=== PATIENT | male | born 1980 | race Caucasian/White ===

== ENCOUNTER 2023-10-26 10:24 | Emergency (ER) | payer BC, SELFPAY ==
[2023-10-26 10:27] VITALS: BP 142/89; PULSE 63; RESP 16; TEMP 37.1; O2SAT 100
[2023-10-26 10:34] VITALS: BP 142/89; PULSE 63; RESP 16; TEMP 37.1; O2SAT 100
--- NOTE | 2023-10-26 10:45 | ED.GENADUL_ITS ---
Discharge Plan Disposition Patient Disposition: Home Condition: Good Discharge Details Chief Complaint: Abd Prob Clinical Impression: Abdominal pain, Abdominal muscle strain Primary Care Provider: Unknown,Unknown ED Provider: Maxx Reddy Home Meds and New Rx's Prescriptions: No Action No Known Home Meds Discharge Instructions Instructions: Muscle Strain (ED), Abdominal Pain (ED) Additional Instructions: You were seen in the emergency department for abdominal pain. We performed labs and a CAT scan your abdomen that were unremarkable. I suspect you likely have a muscle strain of your abdomen. If your symptoms do not fully resolve you should follow-up with your primary care doctor. Take Tylenol and ibuprofen for any discomfort. No heavy lifting but strict bedrest will make this worse. Return to the emergency department for worsening abdominal pain, intractable nausea or vomiting, high fevers or chills, or any black or bloody stools. HPI General Mode of arrival: ambulatory . Date/Time Provider Initiated Documentation: 10/26/23 10:30 . Limitations to Documentation: no limitations . Information obtained by: patient . HPI Narrative: This is a 43-year-old male who presents with left lower quadrant abdominal pain. Lingering for about 3 weeks with no other symptoms. Worse with movement. Says he was lifting something yesterday and it got worse. Still only worse with movement. Not worse with pushing on it. He has no nausea or vomiting. Still eating and drinking normally. No diarrhea or constipation. No black or bloody stools. No urinary symptoms. No penile discharge. No testicular pain. He is not noticing any bulging or scrotal masses. Related Data Home Medications Medication Instructions Recorded Confirmed Unknown [No Known Home Meds] 10/26/23 10/26/23 Allergies Allergy/AdvReac Type Severity Reaction Status Date / Time No Known Allergies Allergy Unverified 10/26/23 10:30 General Stated Complaint: Abd Prob IMELDA: 3 Review of Systems Constitutional Constitutional: Denies chills, Denies fever(s) and Denies headache(s) Eyes Eyes: Denies change in vision ENT Ears, Nose, Mouth, and Throat: Denies headache(s) and Denies odynophagia Cardiovascular Cardiovascular: Denies chest pain and Denies dyspnea Respiratory Respiratory: Denies dyspnea Gastrointestinal Gastrointestinal: Reports abdominal pain, Denies diarrhea, Denies nausea, Denies odynophagia and Denies vomiting Genitourinary Genitourinary: Denies dysuria Musculoskeletal Musculoskeletal: Denies myalgias Integumentary/Breasts Skin/Breast: Denies changing lesions Neurologic Neurologic: Denies behavioral changes and Denies headache(s) Psychiatric Psychiatric: Denies behavioral changes Endocrine Endocrine: Denies heat intolerance Hematologic/Lymphatic Hematologic/Lymphatic: Denies lymphadenopathy Exam Const General: cooperative Nutritional Appearance: average body habitus Orientation: alert, awake and oriented x3 HENMT Head: normal to inspection Ears: external ears normal Mouth: moist mucous membranes Eyes Pupils: PERRL EOM: EOM intact bilaterally and No nystagmus Neck Neck: full ROM and no tracheal deviation Chest Chest: normal inspection of the chest Resp Auscultation: clear to auscultation bilaterally Cardio Rate: regular rate Rhythm: regular rhythm GI Inspection: normal to inspection Palpation: soft, no guarding, not rigid and nontender Back/Spine/Pelvis Back: No no CVA tenderness Thoracic/Lumbar Spine: thoracic and lumbar spine normal to inspection Skin General skin exam: no rashes or lesions noted Neuro General: patient alert, patient awake and patient oriented x3 Cranial Nerves: CN's II-XI intact bilaterally, PERRL and no nystagmus Cognition: normal cognition Motor: muscle tone normal throughout and strength 5/5 throughout Sensory Exam: no sensory deficits noted Extrem General: normal to inspection Course Vital Signs Vital signs: Vital Signs Temperature 37.1 C 10/26/23 10:27 Pulse 63 10/26/23 10:27 Respiratory Rate 16 10/26/23 10:27 Blood Pressure 142/89 H 10/26/23 10:27 Pulse Oximetry 100 10/26/23 10:27 Temperature 37.1 C 10/26/23 10:34 Temperature Source Temporal Artery Scan 10/26/23 10:34 Pulse 63 10/26/23 10:34 Respiratory Rate 16 10/26/23 10:34 Respiratory Effort Normal, Non-Labored 10/26/23 10:30 Blood Pressure 142/89 H 10/26/23 10:34 Blood Pressure Position Sitting 10/26/23 10:34 Pulse Oximetry 100 10/26/23 10:34 Oxygen Delivery Method Room Air 10/26/23 10:34 Oxygen Flow Rate 0 10/26/23 10:34 Pain Level 6 10/26/23 10:34 Comment with movement, less lying down 04/07/24 10:34 Medical Decision Making 43-year-old male presents with left lower quadrant abdominal pain. Based off exam and history likely a muscle strain as it is reproducible with motion as well. He does not have tenderness to suggest intra-abdominal abscess or obstruction. I offered to still perform a CAT scan of the abdomen pelvis to evaluate for this but he would like to hold off which I think is reasonable. He does not have any palpable hernia on examination and certainly does not have any obstructive symptoms so certainly does not need an emergent CT scan at this time. No urinary symptoms to suggest UTI. No testicular pain to suggest torsion. Will provide some analgesia to treat his pain. Will get biliary labs to look for signs of hepatitis, pancreatitis, or other biliary disease though I think that these are very unlikely. Will await initial testing and response to analgesia and reevaluate. 1241pm reeval Patient's symptoms improved. Labs grossly unremarkable. Patient wanted a CT to rule out hernia or obstruction and this is unremarkable. Feels better and would like to go home. Will discharge with return precautions. Likely a muscle strain of the abdominal wall. Imaging Data Radiologic Study: Imaging: CT Scan (abd and pelvis) Radiologist's impression: CT abdomen pelvis with mild constipation but otherwise unremarkable Lab Data Lab results reviewed: Yes I reviewed the patient's lab results. Labs: Labs grossly unremarkable Quality:SDOH Health Related Social Needs: No Data to Display PFSH All Active Problems (Updated 10/26/23 @ 12:44 by Maxx Reddy MD) Abdominal muscle strain (Acute) Abdominal pain (Acute) Social History Smoking/Tobacco Use Status: Never Smoking risk assessment performed?: Yes Alcohol Intake: current Alcohol Intake frequency: holidays/special occasions only Alcohol type: beer Drug use: Never Substance use type: does not use Housing: house Do you feel safe at home: Yes Do you feel safe in your relationship?: Yes
[2023-10-26] MEDS: Normal Saline 1,000 ML 1000 ML IV (10:55)
[2023-10-26] MEDS: Ketorolac 30 MG/ML VIAL IVP (10:56)
[2023-10-26 11:07] LABS: Abs Immature Grans 0.01 10^3/uL (0.0-0.06); Absolute Basophil Count 0.03 10^3/uL (0.0-0.2); Absolute Eosinophil Count 0.07 10^3/uL (0.0-0.7); Absolute Lymphocyte Count 1.41 10^3/uL (1.2-3.4); Absolute Monocyte Count 0.53 10^3/uL (0.1-0.8); Absolute Neutrophil Count 2.66 10^3/uL (1.2-6.7); Basophils % 0.6; Eosinophils % 1.5; HCT 45.3 % (40.0-50.0); HGB 15.3 g/dL (13.5-17.5); Immature Grans % 0.2; Lymphocytes % 29.9; MCH 31.5 pg (27.0-33.0); MCHC 33.8 % (32.0-36.0); MCV 93 fL (80-95); MPV 8.9 fL (8.0-11.0); Monocytes % 11.3; Neutrophils % 56.5; Platelet Count 253 10^3/uL (130-400); RBC 4.85 10^6/uL (4.36-5.78); RDW 12.1 % (11.8-14.1); WBC 4.71 10^3/uL (4.4-10.8)
--- NOTE | 2023-10-26 11:15 | DI.CT_ITS ---
Exam(s) CT ABDOMEN PELVIS W EXAM: CT ABDOMEN PELVIS W CLINICAL HISTORY: llq abdominal pain. TECHNIQUE: Imaging Protocol: Axial computed tomography images with coronal and sagittal reformatted images were created and reviewed CONTRAST MATERIAL: Intravenous: Omnipaque-350 100cc Oral: None COMPARISON: No exams were available for comparison FINDINGS: VISUALIZED LUNG BASES: No nodules nor pleural effusions evident. Mild benign-appearing increased mar kings in the posterior basal segment of the left lower lobe noted. ABDOMEN: There is no ascites. LIVER: There are no focal hepatic lesions evident. No dilated intrahepatic ducts. GALLBLADDER/BILIARY: No obvious gallbladder pathology. CBD is not dilated. PANCREAS: No evidence of pancreatic mass nor dilatation of the pancreatic duct. SPLEEN: Spleen is not enlarged. No obvious intrasplenic lesions. Splenic and portal veins are paten t. ADRENALS: There are no significant adrenal masses. KIDNEYS:There is a benign small cyst in the lateral cortex of the right kidney measuring 8 mm. Not r equire further workup. No other focal kidney findings. No hydronephrosis. No solid renal masses. No calculi nor hydronephrosis.. ABDOMINAL AORTA: Abdominal aorta is not enlarged. LYMPH NODES:There is no retroperitoneal nor paraaortic adenopathy. ABDOMINAL WALL: No evidence of significant anterior abdominal wall nor inguinal hernia. GI: There is no evidence of bowel obstruction, free air, nor abscess. PELVIS: GI: No evidence of appendicitis.No evidence of sigmoid diverticulitis. LYMPH NODES: There is no intrapelvic nor inguinal adenopathy. REPRODUCTIVE: Prostate gland size upper normal. URINARY BLADDER: There is mild uniform thickening of the urinary bladder wall. OSSEOUS: Small sclerotic bone island in the left ischial tuberosity region incidentally noted. Moder ate disc space narrowing L5-S1 level. No listhesis. Also mild disc space narrowing at L2-3. IMPRESSION: 1. No acute findings in the abdomen and pelvis. No evidence of acute inflammatory process. No bowel obstruction. No ascites. RADIATION DOSE DELIVERED: Total DLP DATA REPOSITORY: All CT scans at this facility are submitted to the National Radiology Data Registry (NRDR) Dose Index Registry (DIR) with the [employer] (ACR). RADIATION OPTIMIZATION: All CT scans at this facility use at least one of these dose optimization te chniques: automated exposure control; mA and/or kV adjustment per patient size (includes targeted exa ms where dose is matched to clinical indication); or iterative reconstruction.
[2023-10-26 11:22] LABS: ALT 22 U/L (16-63); AST 18 U/L (15-37); Albumin 3.9 g/dL (3.4-5.0); Alkaline Phosphatase 60 U/L (46-116); Anion Gap 7.8 mmol/L (3-11); BUN 17 mg/dL (7-18); Bilirubin, Total 0.5 mg/dL (0.2-1.0); CO2 26.2 mmol/L (21.0-32.0); CREATININE 0.9 mg/dL (0.70-1.30); Calcium 8.6 mg/dL (8.5-10.1); Chloride 105 mmol/L (98-107); Estimated GFR 107.33 (mL/min/1.73m2); Glucose 103 mg/dL (74-106); Lipase 31 U/L (16-77); Potassium 4.5 mmol/L (3.5-5.1); Sodium 139 mmol/L (136-145); Total Protein 7.2 g/dL (6.4-8.2)
[2023-10-26] MEDS: Normal Saline Flush 10 ML SYR IVP (11:51)
[2023-10-26] MEDS: Normal Saline - Diluent 50 ML VIAL IJ (11:52)
[2023-10-26] MEDS: Omnipaque 350 MG/ML 100 ML BTL IJ (11:53)
--- NOTE | 2023-10-26 12:34 | DI.VRAD_ITS ---
PROCEDURE INFORMATION: Exam: CT Abdomen And Pelvis With Contrast Exam date and time: 10/26/2023 11:56 AM Age: 43 years old Clinical indication: Other: Llq abdominal pain TECHNIQUE: Imaging protocol: Computed tomography of the abdomen and pelvis with contrast. Radiation optimization: All CT scans at this facility use at least one of these dose optimization techniques: automated exposure control; mA and/or kV adjustment per patient size (includes targeted exams where dose is matched to clinical indication); or iterative reconstruction. Contrast material: OMNI 350; Contrast volume: 100 ml; Contrast route: INTRAVENOUS (IV); COMPARISON: No relevant prior studies available. FINDINGS: Lungs: Visualized lung bases are clear. Liver: Normal. No mass or intrahepatic biliary ductal dilatation. Gallbladder and bile ducts: Normal. No calcified stones. No ductal dilation. Pancreas: Normal. No mass or ductal dilation. Spleen: Normal. No splenomegaly. Adrenal glands: Normal. No mass. Kidneys and ureters: Normal. No hydronephrosis, calculus, cyst or mass. Stomach and bowel: Stomach and small bowel are normal. There is a relatively large amount of retained fecal material throughout the colon. No mass or wall thickening. Appendix: No evidence of appendicitis. Intraperitoneal space: Unremarkable. No free air. No significant fluid collection. Vasculature: Unremarkable. No abdominal aortic aneurysm or significant atherosclerosis. Lymph nodes: No enlarged retroperitoneal or mesenteric lymph nodes. Urinary bladder: No mass or wall thickening. Reproductive: Unremarkable as visualized. Bones/joints: Unremarkable. No acute fracture. No lytic lesion. Soft tissues: Unremarkable. IMPRESSION: Mild constipation. Dictated and Authenticated by: Nilo Rodríguez MD. Ordering:BETTY Lilly MD
[2023-10-26 12:50] VITALS: BP 142/89; PULSE 63; RESP 16; TEMP 37.1; O2SAT 100
== END 2023-10-26 12:49 | disposition home or self-care (01) ==
PROVIDERS: Emergency Provider Student in an Organized Health Care Education/Training Program
DX: R10.32 Left lower quadrant pain (principal); S39.011A Strain of muscle, fascia and tendon of abdomen, initial encounter; X50.9XXA Other and unspecified overexertion or strenuous movements or postures, initial encounter; Y93.89 Activity, other specified; Y92.017 Garden or yard in single-family (private) house as the place of occurrence of the external cause
CPT/HCPCS: 80053; 83690; 96361; 96374; 99285; 74177; 85025; 99284; J1885; J3490

== ENCOUNTER 2024-03-09 09:52 | Outpatient (CLI) | payer BC, SELFPAY ==
[2024-03-09 10:27] LABS: HGB 15.1 g/dL (13.5-17.5)
[2024-03-09 10:56] LABS: ALT 33 U/L (16-63); AST 22 U/L (15-37); Albumin 3.7 g/dL (3.4-5.0); Alkaline Phosphatase 67 U/L (46-116); Anion Gap 5.6 mmol/L (3-11); BUN 16 mg/dL (7-18); Bilirubin, Total 0.44 mg/dL (0.2-1.0); CO2 28.4 mmol/L (21.0-32.0); CREATININE 1.1 mg/dL (0.70-1.30); Calcium 8.8 mg/dL (8.5-10.1); Calculated LDL 94 mg/dL (<100); Chloride 105 mmol/L (98-107); Cholesterol 189 mg/dL (<200); Estimated GFR 84.37 (mL/min/1.73m2); Glucose 83 mg/dL (74-106); HDL Cholesterol 75 mg/dL (40-60); Potassium 4.4 mmol/L (3.5-5.1); Sodium 139 mmol/L (136-145); Total Protein 6.9 g/dL (6.4-8.2); Triglyceride 100 mg/dL (<150)
== END 2024-03-09 09:53 | disposition home or self-care (01) ==
LOC: LBO 09:53
PROVIDERS: PCP Student in an Organized Health Care Education/Training Program; Visit Provider Student in an Organized Health Care Education/Training Program
DX: Z13.220 Encounter for screening for lipoid disorders (principal); Z13.9 Encounter for screening, unspecified; Z13.1 Encounter for screening for diabetes mellitus; Z91.89 Other specified personal risk factors, not elsewhere classified
CPT/HCPCS: 36415; 80053; 80061; 85018

== ENCOUNTER 2024-07-16 07:46 | Day surgery (SDC) | payer BC, SELFPAY ==
--- NOTE | 2024-07-15 16:16 | PDOC.DSDIS_ITS ---
Date of service: 07/16/24 Discharge Plan Disposition Patient Disposition: Home Condition: Good Discharge Details Reason For Visit: screening colonoscopy Attending Provider: Daryl Valles Primary Care Provider: Alley Rowe Home Meds and New Rx's Prescriptions: Discontinued polyethylene glycol 3350 17 gram/dose powder 238 g PO ONCE Qty: 238 0RF Rx Instructions: take per colonoscopy instructions bisacodyl [Dulcolax (bisacodyl)] 5 mg tablet,delayed release (DR/EC) 5 mg PO ONCE Qty: 4 0RF Rx Instructions: take per colonoscopy instructions No Action creatine monohydrate Powder PO Discharge Instructions Instructions: Colon polyps Additional Instructions: Screening, was pleasure seeing you again today, and I hope you are comfortable throughout the procedure. Everything went very smoothly. Your prep was excellent and I could see everything fine. I did find to remove a single polyp today. This is quite small, and certainly nothing to worry about. This will be sent off to the pathologist for their review. Once I know the results of the nature of this polyp, my office will be in touch regarding recommendations for your next colonoscopy. Those results usually take a week or so to become available. If you need anything or have any questions in the meantime, please do not hesitate to call 1. If tolerated, consume a soft, low fiber diet for 1-2 days. 2[address] Do not drive, drink alcohol, operate machinery, make critical decisions, or do activities that require coordination or balance for 24 hours. 3. Because air was put into your colon during the procedure, expelling air from your rectum (passing gas or farting) is normal. 4. You may not have a bowel movement for 1-3 days because of the colonoscopy prep. This is normal. 5. Go directly to the emergency room if you notice any of the following: Develop chills (warm to touch), or if you have a thermometer and your temperature is above 101 Difficulty breathing or difficultly swallowing Persistent vomiting Severe abdominal pain, other than gas cramps Severe chest pain Black, tarry stools Any bleeding ? exceeding one tablespoon 6. Call your physician if the site where your intravenous was started becomes red, swollen, painful, and warm to touch. 7. Your physician has reviewed your pre-procedure medications. Please continue to take those medications as previously ordered. You will be given specific in formation/education regarding any changes to your medications before leaving. Activity:: Activity as Tolerated Diet:: As Tolerated Discharge Orders Discharge Orders: Discharge Order (Routine); Ordered 07/15/24 Ordered By: Daryl Valles DS: Diagnosis Discharge Diagnosis (1) Encounter for screening colonoscopy: Status: Acute Asessment and Plan: Follow-up on polypectomy results
--- NOTE | 2024-07-15 16:18 | W.COLOREPORT ---
Date of service: 07/16/24 Time of Service: 09:36 Colonoscopy Report Date of procedure: 07/16/24 Pre-op diagnosis general: screening colonoscopy Post-op diagnosis procedure note: other (Colon polyp) Procedure: colonoscopy with polypectomy Surgeon: Daryl Valles Anesthesia Type: General:No Airway Estimated blood loss (mL): 5 Pathology: other (0.25 cm flat polyp at 25 cm) Complications: None Disposition: same day Indications: Darren is a 44 year old manw ho needs a screening colonoscopy Prep: Miralax/Dulcolax Procedure Start Time: :11 Procedure End Time: :30 Retraction Time: 11 Findings: 0.25 cm flat polyp at 25 cm Procedure Description: After the induction of anesthesia, and with the patient in left lateral decubitus position, I began by performing an external anorectal exam.? Perineum and skin were normal, as was the anal verge.? There was no evidence of external hemorrhoids.? Next, I performed a digital rectal exam.? I did not appreciate any abnormal findings.? Next, I advanced a colonoscope into the rectal vault.? I performed retroflexion.? This appeared normal.? Using insufflation, I then advanced the colonoscope beyond the rectal folds and into the sigmoid colon before advancing towards the cecum.? The quality of the prep was outstanding.? The scope was noted to be in the cecum by identification of the ileocecal valve and appendiceal orifice.? I then began withdrawing the colonoscope using repeated irrigation as necessary for full evaluation of the colonic mucosa. Around 25 cm from the anal verge was a 0.25 cm flat polyp. Narrowband imaging was used to assist with the analysis. Most features are consistent with hyperplastic polyp, but to be safe, I did remove this with cold forceps polypectomy. There is minimal bleeding. Once the scope was withdrawn to the level of the rectum, great care was taken to examine portions of the rectal folds.? Finally, the scope was withdrawn and the patient was brought to the same-day surgery recovery unit as the anesthetic wore off. ?The findings and instructions were shared with the patient prior to discharge. [place] Bowel Prep [place] Bowel Prep Right Colon: 3 Left Colon: 3 Transverse Colon: 3 Total Score: 9
[2024-07-16 08:13] VITALS: BP 105/85; PULSE 79; RESP 14; TEMP 36.4; O2SAT 100
[2024-07-16] MEDS: Lactated Ringers 1,000 ML 80 ML IV (08:25)
--- NOTE | 2024-07-16 08:31 | ANES.PREOP_ITS ---
General Info Date of Service Date Performed: 07/16/24 Height: 5 ft 10 in Weight: 84.7 kg Body Mass Index (BMI): 26.8 Surgical Procedure: Operation Date: 07/16/24 09:05 Proposed Procedure Side Surgeon p Wendi Valles MD Meds Allergies and Home Medications Allergies Allergy/AdvReac Type Severity Reaction Status Date / Time No Known Allergies Allergy Verified 07/16/24 08:10 Home Medication ?Medication ?Instructions ?Recorded creatine monohydrate pwd PO 07/16/24 Current Visit Medications: Current Medications Generic Name Dose Route Start Last Admin Trade Name Freq PRN Reason Stop Dose Admin Ringer's Solution 1,000 mls @ 80 mls/hr 07/16/24 07:45 IV 08/15/24 07:44 INFUSION KIARA IV Miscellaneous Supplies 1 each 07/16/24 06:00 Iv Access IV 07/16/24 23:59 DIRECTED KIARA Ondansetron HCl 4 mg 07/15/24 16:22 Ondansetron 4 Mg/2 Ml Vial IVP 08/14/24 16:21 Q4H PRN PRN Nausea / Vomiting Sodium Chloride 0 ml 07/16/24 06:00 Normal Saline Flush 10 Ml Syr IV 07/16/24 23:59 PRN PRN Sodium Chloride 0 ml 07/16/24 06:00 Normal Saline 10 Ml Vial IJ 07/16/24 23:59 DIRECTED PRN Sterile Water 0 ml 07/16/24 06:00 Water,Injection,Sterile 10 Ml Vial IJ 07/16/24 23:59 DIRECTED PRN PFSH Active Problems Active Problems: Problem Status Onset Code Encounter for screening colonoscopy Acute Z12.11 Medical History Medical History Family history of atrial fibrillation Hernia, inguinal, left POSSIBLE .. Neg per CT (ED visit) Surgical History Surgical History History of repair of ACL 2009 [facility] [place] Right Tobacco Smoking/Tobacco Use Status: Never Passive smoking exposure: No Alcohol Alcohol Intake: current Alcohol intake frequency: a few times a week Alcohol type: beer Substance Use Substance use: Occasionally Substance use type: does not use and marijuana Details: alcohol: 07/13/24, one drink. marijuana: about a month ago Vital Signs and Lab Results Vital Signs Most Recent Vital Signs in EMR: Most Recent Vital Signs Temp Pulse Resp BP Pulse Ox 36.4 C L 79 14 105/85 100 07/16/24 08:13 07/16/24 08:13 07/16/24 08:13 07/16/24 08:13 07/16/24 08:13 Lab Results Blood Type / Crossmatch: No Data to Display Complete Blood Count: No Data to Display Complete Metabolic Panel: No Data to Display Liver Function Panel: No Data to Display Coagulation Panel: No Data to Display Cardiac Panel: No Data to Display Arterial Blood Gas: No Data to Display Venous Blood Gas: No Data to Display Pancreas Panel: No Data to Display Thyroid Panel: No Data to Display Infectious Disease: No Data to Display Blood Cultures: No Data to Display Toxicology Panel: No Data to Display Anesthesia Assessment and Plan Anesthesia History Personal History: No History of Anesthesia Complications Family History: No Family History of Anesthesia Complications Exercise Tolerance Exercise Tolerance: Metabolic Equivalents>4 Pertinent Negatives Pertinent Negatives: No Symptoms of GERD Cardiac & Pulmonary Exam Cardiac Exam: Normal S1/S2 Heart Sounds Pulmonary Exam: Clear Bilateral Breath Sounds Implantable Cardiac Device Does patient have a Pacemaker or an ICD?: No Airway Exam Known Difficult Airway: No Mallampati Class: 2 Mouth Opening: Normal (> 3cm) Thyromental Distance: Greater than 3 cm Facial Hair: Full [place] Neck Range of Motion: Full ROM Neck Circumference: Normal Teeth Condition: Normal Dentition ASA Classification ASA Score: ASA 2 Emergency Case?: No NPO Status NPO Status: NPO Clears >2 hours, Solids >8 hours Anesthesia Plan Resuscitation Status: Full Code Anesthesia Technique: General Anesthesia Airway Planned: Natural Airway Monitors Used: Standard Monitors
[2024-07-16 08:32] VITALS: BMI 26.8
--- NOTE | 2024-07-16 09:29 | BOWEL_PTH ---
PATIENT: Darren Mayfield LOC: [facility] U#:[id number] AGE/SX: 44/M ROOM: RE07/16/[address]: Daryl Valles MD : 1980 BED: DIS: 07/16/2024 SPEC #: [id number] RECD: 07/16/24 12:33 STATUS: [place] RE #: [id number] MARIA SUBM DR: Daryl Valles DEPT: Surgical Specimen RECD BY: Yoselin Heart ENTERED: 07/16/24 12:34 SP TYPE: Bowel OTHR DR: Alley Rowe DO Tissues: 1 - BIOPSY BOWEL Procedures: GROSS AND MICRO LEVEL 4 Comments: [id number]
[2024-07-16 09:40] VITALS: BP 105/65; PULSE 60; RESP 16; TEMP 36.4; O2SAT 96
--- NOTE | 2024-07-16 09:48 | W.ANESPOSTOP ---
Postoperative Evaluation Date, Time and Location Date Performed: 07/16/24 Time Performed: 09:48 Patient Location: Day Surgery Unit Vital Signs Most Recent Imported Vital Signs: Most Recent Vital Signs Temp Pulse Resp BP Pulse Ox 36.4 C L 60 16 105/65 96 07/16/24 09:40 07/16/24 09:40 07/16/24 09:40 07/16/24 09:40 07/16/24 09:40 Pain Score Most Recent Pain Score: Most Recent Pain Score Pain Level 0 07/16/24 08:13 Assessment Mental Status: Awake (Alert & Oriented to Patient Baseline) Airway and Respiratory Function: Patent airway with normal (patient baseline) respiratory exam Cardiovascular Function: Hemodynamically Stable Hydration Status: Adequately Hydrated Nausea & Vomiting: No Nausea or Vomiting Pain: Pt. Denies Any Pain Peripheral Nerve Block: Patient did not receive a nerve block
[2024-07-16 09:58] VITALS: BP 108/77; PULSE 58; RESP 18; TEMP 36.3; O2SAT 99
== END 2024-07-16 10:22 | disposition home or self-care (01) ==
PROVIDERS: PCP Student in an Organized Health Care Education/Training Program; Visit Provider Surgery
PROC: 0DJD8ZZ Inspection of Lower Intestinal Tract, Via Natural or Artificial Opening Endoscopic (ICD-10-PCS; CPT 45378; principal; 2024-07-16 09:00)
DX: Z12.11 Encounter for screening for malignant neoplasm of colon (principal); K63.5 Polyp of colon
CPT/HCPCS: 45380; 88305; J2704